=== PATIENT | female | born 1945 | race Caucasian/White ===

== ENCOUNTER 2021-08-10 08:00 | Observation (INO) ==
[~2021-08-10 08:00] MED LIST: Buffered Lidocaine 1% SYRIN 1 ml INTRADERM ONE; DiMENhydriNATE IV 50 mg/ml 1 ml VIAL IV PUSH ONE; DiMENhydriNATE IV 50 mg/ml 1 ml VIAL ONE; HYDROcodone/ACETAMIN 5/325 mg TAB PO PRN; Lactated Ringers 1000 ml BAG 1,000 ML IV SCH; Metoclopramide 5 MG/ML VIAL (10 mg) IV PRN; Naloxone 0.4 mg VIAL 0.4 mg/ml 1 ml VIAL IV PRN; Ondansetron 4 mg VIAL 2 MG/ML 2 ml VIAL IV PRN; ceFAZolin 2 GM in NS PREMIX 2 GM/100 ML BAG IVPB ONE
[2021-08-10] MEDS ORDERED: Midazolam 2 mg/2 ml VIAL 1 mg/ml 2 ml VIAL (2 mg) ONE (10:00)
[2021-08-10] MEDS ORDERED: Propofol 10 MG/ML 20 ML BTL ONE (10:16)
[2021-08-10] MEDS ORDERED: Lidocaine 2% PF 5 ML VIAL ONE (10:30)
[2021-08-10] MEDS ORDERED: Ondansetron 4 mg VIAL 2 MG/ML 2 ml VIAL IV PRN (11:08)
[2021-08-10] MEDS ORDERED: Magnesium Hydroxide LIQ 30 ML UDC PO PRN (11:08)
[2021-08-10] MEDS ORDERED: Morphine 2 MG/ML SYRINGE IV PRN (11:08)
[2021-08-10] MEDS ORDERED: diPHENhydraMINE 25 mg TAB PO PRN (11:08)
[2021-08-10] MEDS ORDERED: diPHENhydraMINE IV 50 MG/ML 1 ml VIAL (BENADRYL) IV PRN (11:08)
[2021-08-10] MEDS ORDERED: Lactulose 30 ml UDC PO PRN (11:08)
[2021-08-10] MEDS ORDERED: Ondansetron ODT 4 mg TAB 4 MG TAB PO PRN (11:08)
[2021-08-10] MEDS ORDERED: Dextran 70/Hypromellose Tears Eye Drops 15 ml BTL (for Artificials Tears) BOTH EYES PRN (11:16)
[2021-08-10] MEDS ORDERED: Olopatadine 0.1% OPHTH (NF) 1 DROP BTL BOTH EYES PRN (11:16)
[2021-08-10] MEDS ORDERED: OLOPATADINE 0.7% BOTH EYES PRN (11:16)
[2021-08-10] MEDS ORDERED: fentaNYL 100 mcg/2 ml 50 MCG/ML VIAL ONE (12:55)
[2021-08-10] MEDS: fentaNYL 100 mcg/2 ml 50 MCG/ML VIAL IV PRN ×4 (12:58→13:40)
[2021-08-10] MEDS: Lactated Ringers 1000 ml BAG 1,000 ML IV SCH (14:52)
[2021-08-10] MEDS: ceFAZolin 1 GM ADVAN 1 GM in NS 0.9% 50 ML 50 ML IVPB SCH (18:22)
[2021-08-10] MEDS: Magnesium Hydroxide LIQ 30 ML UDC PO SCH (22:04)
[2021-08-11] MEDS: Lactated Ringers 1000 ml BAG 1,000 ML IV SCH (01:15)
[2021-08-11] MEDS: ceFAZolin 1 GM ADVAN 1 GM in NS 0.9% 50 ML 50 ML IVPB SCH ×2 (02:03→10:03)
[2021-08-11 07:11] LABS: Hematocrit 26 % (35-47); Mean Platelet Volume 8.1 fL (7.4-10.4); Platelet Count 215 10^3/uL (150-450)
[2021-08-11 07:28] LABS: Calcium 8.1 mg/dL (8.6-10.3); Potassium 4.3 mmol/L (3.5-5.0)
[2021-08-11] MEDS: Magnesium Hydroxide LIQ 30 ML UDC PO SCH (08:25)
[2021-08-11] MEDS ORDERED: Vitamin THERAPEUTIC TAB PO SCH (09:00)
[2021-08-11 12:14] VITALS: BP 114/58
[2021-08-13] MEDS ORDERED: ESTRADIOL VAGINAL 10 MCG VAGINAL SCH (09:00)
== END 2021-08-11 15:00 | disposition home or self-care (01) ==
LOC: OR 08:00 → SSU 08:00
PROVIDERS: ADMIT Orthopaedic Surgery Adult Reconstructive Orthopaedic Surgery; ATTEND Orthopaedic Surgery Adult Reconstructive Orthopaedic Surgery